=== PATIENT | male | born 1965 | race African-American/Black ===

== ENCOUNTER 2025-04-11 17:37 | Emergency (ER) | payer OTHER ==
[~2025-04-11] VITALS: Ht 182.9 cm; Wt 118.0 kg
[2025-04-11 17:44] VITALS: O2SAT 100
[2025-04-11 18:08] VITALS: TEMP 37.1
[2025-04-11] MEDS: IBUPROFEN 800MG TABLET PO ONE (18:19)
[2025-04-11] MEDS: OXYCODONE HCL/ACETAMINOPHEN 5/325MG TABLET PO ONE (18:19)
[2025-04-11] MEDS: FAMOTIDINE 20MG TABLET PO ONE (20:23)
[2025-04-11] MEDS ORDERED: IBUP-2030 MT (21:21)
[2025-04-11 21:41] VITALS: BP 146/93; PULSE 86; RESP 14; O2SAT 97
== END 2025-04-11 21:30 | disposition home or self-care (01) ==
LOC: ER 17:37
DX: R07.89 Other chest pain (principal); E11.9 Type 2 diabetes mellitus without complications; I10 Essential (primary) hypertension; V43.52XA Car driver injured in collision with other type car in traffic accident, initial encounter; Y93.89 Activity, other specified; Y92.410 Unspecified street and highway as the place of occurrence of the external cause; Y99.8 Other external cause status
CPT/HCPCS: 71101; 71250; 93005; 99284